=== PATIENT | female | born 1955 | race Caucasian/White ===

== ENCOUNTER → 2017-01-02 | Outpatient (CLI) | payer OTHER ==
[~2017-01-02] MED LIST: ASCO1CAP3 PO; ESTROVEN OTC; ONDA4TAB7 SL
--- NOTE | 2017-01-03 08:29 | MAMMOGRAPHY REPORT ---
BILATERAL DIGITAL SCREENING MAMMOGRAM TOMOSYNTHESIS WITH CAD: 01/02/2017 CLINICAL HISTORY: Routine screening. Patient has no complaints. TECHNIQUE: Breast tomosynthesis in addition to standard 2D mammography was performed. Current study was also evaluated with a Computer Aided Detection (CAD) system. COMPARISON: Comparison is made to exams dated: 12/29/2015 mammogram, 09/20/2014 mammogram, 05/27/2013 m ammogram, 05/11/2013 mammogram, 03/02/2012 mammogram, and 10/16/2010 mammogram - [facility] enter. BREAST COMPOSITION: The tissue of both breasts is heterogeneously dense, which may obscure small mas ses. FINDINGS: No suspicious masses, calcifications, or areas of architectural distortion are noted in ei ther breast. There has been no significant interval change compared to prior exams. IMPRESSION: ACR BI-RADS CATEGORY 1: NEGATIVE There is no mammographic evidence of malignancy. A 1 year screening mammogram is recommended. The pa tient will receive written notification of the results. Approximately 10% of breast cancers are not detected with mammography. A negative mammographic report should not delay biopsy if a clinically suggestive mass is present. Shira Herman M.D. ah/:01/02/2017 14:48:46 Chain Hoist Operator: Mercy Sommers RT(R)(M), [facility] letter sent: Normal 1/2 BI-RADS Code: ACR BI-RADS Category 1: Negative
== END | disposition home or self-care (01) ==
LOC: C.MAMM 09:37
PROVIDERS: ATTEND Family Medicine
DX: Z12.31 Encounter for screening mammogram for malignant neoplasm of breast (principal)

== ENCOUNTER 2020-08-04 07:57 | Observation (INO) ==
--- NOTE | 2020-07-11 15:16 | PAT Medication Instructions ---
Medication Instructions Date of Service July 11, 2020 Home Medications ascorbate calcium (vitamin C) 500 mg tablet 500 mg PO QAM acetaminophen [Acetaminophen Extra Strength] 500 mg PO Q6H PRN ibuprofen 600 mg PO Q6H PRN ASK your surgeon for instructions ibuprofen 600 mg PO Q6H PRN DO NOT take the morning of surgery ascorbate calcium (vitamin C) 500 mg tablet 500 mg PO QAM Take morning of surgery With a small sip of water, OTHERWISE NOTHING TO EAT OR DRINK AFTER MIDNIGHT: acetaminophen [Acetaminophen Extra Strength] 500 mg PO Q6H PRN (okay to take up to 4 hours prior to surgery if needed) Take evening before surgery acetaminophen [Acetaminophen Extra Strength] 500 mg PO Q6H PRN (if needed) Other Notes If you have any questions please call us at [phone] or [phone] or [phone] or [phone]
--- NOTE | 2020-07-12 14:34 | Anesthesiology Consultation ---
Date of Service July 12, 2020 Assessment & Plan (1) Encounter for pre-operative examination: Chart Review Chart Review: Acceptable Risk for Surgery (pending preop Covid testing ) and Patient seen in Pre Admission Testing Per PAT appt on 07/12/20, patient denies any recent travel. No known Covid positive contacts or Covid related symptoms. No known Covid infections in the past 90 days. Educated patient to follow up with surgeon's office regarding Covid testing- pt educated the preop Covid testing cannot be more than 7 days. Educated on importance of self quarantining, social distancing and wearing mask in public both for the patient and household contacts. Teaching & Discussion Pre-Anesthesia Teaching/Discussion Notes: Instructed NPO after midnight before surgery,except medications with 15 cc of water. Medication instructions provided according to the PAT guidelines. History Surgery Operation Date: 08/04/20 10:40 Proposed Procedures p Total Knee Arthroplasty - Henry Reynolds, Height/Weight Height: 5 ft 6 in Weight: 51.9 kg Allergies Allergy/AdvReac Type Severity Reaction Status Date / Time pseudoephedrine Allergy Intermediate ITCHY Verified 07/06/20 12:36 sulfamethoxazole Allergy Intermediate Gastrointestinal Verified 07/06/20 12:36 [From Bactrim] Upset trimethoprim [From Bactrim] Allergy Intermediate Gastrointestinal Verified 07/06/20 12:36 Upset diphenhydramine Allergy Mild ITCHY Verified 07/06/20 12:36 meloxicam [From Mobic] AdvReac Intermediate UNCONTROLLED Verified 07/06/20 12:36 BLADDER/URINARY FREQUENCY Medications Home Medications Medication Instructions Recorded Confirmed Last Taken ascorbate calcium (vitamin C) 500 500 mg PO QAM 05/05/19 07/06/20 01/25/20 mg tablet acetaminophen [Acetaminophen Extra 500 mg PO Q6H PRN 07/06/20 07/06/20 Unknown Strength] ibuprofen 600 mg PO Q6H PRN 07/06/20 07/06/20 Unknown Past Medical History Medical History History of depression Stable Migraine ON RARE OCCASIONS-STABLE Osteoarthritis Exercise / Class Metabolic Activity II 4-5 Yardwork/Stairs/Walk up hill (ONE FLIGHT OF STAIRS = NO CHEST PAIN OR SOB ) Past Family History Family History Mother Borderline diabetes Other No family history of adverse response to anesthesia Denies family history of Ovarian cancer Prostate cancer Myocardial infarction Breast cancer Colorectal cancer Past Surgical History Surgical History History of cataract surgery RT/LEFT History of dilatation and curettage History of hysterectomy History of tooth extraction Past Anesthesia History No Hx of Anesthesia Complications and No Family Hx of Anesthesia Complications History of PONV No Hx of PONV and No Hx of Motion Sickness Social History Smoking Status: Never smoker Hx Alcohol Use: No Hx Substance Use: No substance use type: does not use Review of Systems Hx of mild/occ snoring- no witnessed apnea - no hx of sleep study Patient denies chest pain, shortness of breath, dyspnea on exertion, reflux, cough, wheezing, palpitations. No hx of seizures, stroke, [place]. No hx of blood clots or blood transfusions Physical Exam Vital Signs VITALS BP 126/77 P 80 TEMP 98.1 SP02 97% RESP 16 Constitutional no acute distress ENMT Mouth: no TMJ clicking Thyromental Distance: > or= 3.5 Finger Breadths (3.5) Mallampati Class: II Missing molars Neck neck extension not limited Respiratory normal respiratory effort; no respiratory distress Auscultation: lungs clear to auscultation bilaterally; no wheezes Cardiovascular Rate/Rhythm: regular rate and regular rhythm Heart Sounds: no murmur Vessels: no carotid bruit Musculoskeletal Spine: no pain with cervical ROM Extremities: extremities normal to inspection Psychiatric Orientation: alert Testing Laboratory Results 07/12/20 14:55 07/12/20 14:55 PT 9.5 Seconds (9.0-12.0) 07/12/20 14:55 INR 0.9 (0.9-1.1) 07/12/20 14:55 APTT 28.3 Seconds (21.0-31.0) 07/12/20 14:55 Blood Type B Positive 07/12/20 14:55 Antibody Screen NEGATIVE 07/12/20 14:55 Electrocardiogram Date: 07/12/20 Findings: + NSR @ (69bpm) Rightward axis Chest X-Ray Date: 07/12/20 Findings: + NAD
--- NOTE | 2020-07-12 15:23 | XRay Report ---
XR chest Pre-admission PA/Lat HISTORY: 64 years-old Female pat degenerative joint disease COMPARISON: Chest radiograph 03/21/2012 TECHNIQUE: PA and lateral views of the chest FINDINGS: Cardiomediastinal and hilar silhouettes are within normal limits. There is no pneumothorax, pleural e ffusion, airspace consolidation or overt pulmonary edema. Bones of the chest appear grossly intact. IMPRESSION: No acute process. ACT 112: Negative or not required by law. The above report was generated using voice recognition software. It may contain grammatical, syntax o r spelling errors. Electronically signed by: Hussein Francois M.D. 07/12/2020 3:21 PM
[2020-07-12 15:32] LABS: Basophils # (auto) 0.02 K/uL (0-0.2); Basophils % (auto) 0.4 %; Eosinophils # (auto) 0.12 K/uL (0-0.5); Eosinophils % (auto) 2.6 %; Hematocrit (blood only) 35.1 % (37-47); Hemoglobin 11.4 g/dL (12.0-16.0); Immature Granulocytes # (auto) 0.01 K/uL (0.00-0.02); Immature Granulocytes % (auto) 0.2 %; Lymphocytes # (auto) 1.15 K/uL (1.2-3.4); Lymphocytes % (auto) 24.9 %; Mean Corpuscular Hemoglobin 28.1 pg (25-34); Mean Corpuscular Hgb Conc 32.5 g/dL (32-36); Mean Corpuscular Volume 86.5 fL (80-100); Mean Platelet Volume 9.3 fL (7.4-10.4); Monocytes % (auto) 8.7 %; Neutrophils # (auto) 2.92 K/uL (1.4-6.5); Neutrophils % (auto) 63.2 %; Platelet Count 430 K/uL (130-400); RDW Coefficient of Variation 14.3 % (11.5-14.5); RDW Standard Deviation 45.2 fL (36.4-46.3); Red Blood Count 4.06 M/uL (4.2-5.4); White Blood Count 4.62 K/uL (4.8-10.8)
[2020-07-12 15:48] LABS: INR 0.9 (0.9-1.1); Partial Thromboplastin Ratio 1.1; Partial Thromboplastin Time 28.3 Seconds (21.0-31.0); Prothrombin Time 9.5 Seconds (9.0-12.0)
[2020-07-12 16:12] LABS: BUN Creatinine Ratio 20.6 (10-20); Calcium 9.1 mg/dl (8.5-10.1); Creatinine Clr Calc Pharmacy 95.7 ml/min; Est GFR (African American) 119.3; Est GFR (Non-African American) 102.9; Potassium 4.2 mmol/L (3.5-5.1)
--- NOTE | 2020-07-13 22:13 | Electrocardiogram Report ---
Test Reason : Blood Pressure : / mmHG Vent. Rate : 069 BPM Atrial Rate : 069 BPM P-R Int : 160 ms QRS Dur : 088 ms QT Int : 376 ms P-R-T Axes : 085 094 075 degrees QTc Int : 402 ms Normal sinus rhythm Rightward axis Borderline ECG No previous ECGs available Confirmed by Kedar Longoria ([id number]) on 07/13/2020 10:13:15 PM Referred By: Henry Reynolds Confirmed By:Kedar Longoria
--- NOTE | 2020-08-04 06:24 | History & Physical Report ---
Date of Service August 04, 2020 Assessment & Plan (1) Osteoarthritis of left knee: We will proceed with a left total knee arthroplasty. Postoperatively she will be started on aspirin for DVT prophylaxis and kept overnight in the hospital for postoperative medical management. She plans to use energy physical therapy upon discharge. History of Present Illness Chief Complaint: Osteoarthritis left knee. Primary Care Provider: Nery Acuna MD Danya is a pleasant six 5-year-old female who is been doing with chronic increasing left knee pain. X-rays and clinical examination have been diagnostic for advanced osteoarthritis of the left knee. After failing conservative treatment, she has elected to proceed with a left total knee arthroplasty.. Allergies Allergy/AdvReac Type Severity Reaction Status Date / Time pseudoephedrine Allergy Intermediate ITCHY Verified 07/06/20 12:36 sulfamethoxazole Allergy Intermediate Gastrointestinal Verified 07/06/20 12:36 [From Bactrim] Upset trimethoprim [From Bactrim] Allergy Intermediate Gastrointestinal Verified 07/06/20 12:36 Upset diphenhydramine Allergy Mild ITCHY Verified 07/06/20 12:36 meloxicam [From Mobic] AdvReac Intermediate UNCONTROLLED Verified 07/06/20 12:36 BLADDER/URINARY FREQUENCY Home Medications Medication Instructions Recorded Confirmed Type ascorbate calcium (vitamin C) 500 500 mg PO QAM 05/05/19 07/26/20 History mg tablet acetaminophen [Acetaminophen Extra 500 mg PO Q6H PRN 07/06/20 07/26/20 History Strength] ibuprofen 600 mg PO Q6H PRN 07/06/20 07/26/20 History Past Med/Surg History Medical History History of depression Stable Migraine ON RARE OCCASIONS-STABLE Osteoarthritis Surgical History History of cataract surgery RT/LEFT History of dilatation and curettage History of hysterectomy History of tooth extraction Family History Mother Borderline diabetes Other No family history of adverse response to anesthesia Denies family history of Ovarian cancer Prostate cancer Myocardial infarction Breast cancer Colorectal cancer Social History Smoking Status: Never smoker Second Hand Exposure: No; Hx Alcohol Use: No Hx Substance Use: No Preferred Language: Luxembourgish Communication Ability: Effective Agronomy Manager Required: No Beliefs That Will Affect Care: None Current Living Situation: Alone current occupational status: retired Feels Safe at Home: Yes Safety Concerns: Feels Safe At This Time caffeine: Yes Dental Care, Regularly: No Physical Activity Frequency: 3-4 Times per Week Seatbelt Use: always Sunscreen Use: Yes Assistive Devices: Glasses Review of Systems All systems reviewed & are unremarkable except as noted in HPI & below. Physical Exam On physical examination of the left knee, she has a trace effusion. She has good motion of 0 to 120 degrees. She has no instability. She has pain over the distal medial and lateral femoral condyles.. Constitutional WD/WN, vitals as above Eyes PERRL, conjunctivae normal, anicteric sclerae ENMT external ear and nose normal, oropharynx normal Neck trachea midline, no thyromegaly Respiratory normal respiratory effort Cardiovascular RRR, no murmur, no edema Gastrointestinal (Abdomen) normal bowel sounds, soft, nontender, no hepatosplenomegaly Psychiatric A+Ox3, euthymic affect Results & Data Results & Data Laboratory Results . Diagnostic Findings X-rays of the left knee do show advanced osteoarthritis with joint space narrowing, osteophyte formation, and [id number] articulation.. PG Care Time/CCT Total # of Minutes Spent Total Time Spent with Patient: Total time spent is greater than 50% in coordination of care (as documented) at patient's floor/unit and/or counseling patient: Coding Level of Care Code None Diagnoses Osteoarthritis of left knee M17.12
[~2020-08-04 07:57] MED LIST changes: +ACETAMINOPHEN 500 MG TAB PO SCH; -ASCO1CAP3 PO; +BUPIVACAINE 0.5 % 5 MG/1 ML PF 10ML VIAL ONE; -ESTROVEN OTC; +FAMOTIDINE 20 MG TAB PO SCH; +GABAPENTIN 300 MG CAP PO SCH; +LR 500ML BOLUS, THEN 15ML/HR IV SCH; +LR 60ML/HR IV SCH; -ONDA4TAB7 SL; +ROPIVACAINE 0.5% HCL/PF 150 MG, BUPIVACAINE 0.75% MPF 20 ML, EPINEPHrine 30MG/30ML (OR ... INSTIL SCH; +TRANEXAMIC ACID 1,000 MG **IV Intra-op IV SCH; +TRANEXAMIC ACID 1,000 MG **IV Pre-op IV SCH; +ceFAZolin 1000MG 1,000 MG/7.5 ML SYR IV SCH; +dexAMETHasone 4 MG TAB PO SCH
[2020-08-04] MEDS ORDERED: fentaNYL citrate 100 MCG/2 ML VIAL IV PRN (08:54)
[2020-08-04] MEDS ORDERED: ePHEDrine sulfate 50 MG/ML AMP IV PRN (08:54)
[2020-08-04] MEDS ORDERED: ATROPINE SULFATE 0.1 MG/ML 10ML SYR IV PRN (08:54)
[2020-08-04] MEDS ORDERED: ONDANSETRON INJ 2 MG/ML 2 ML VIAL IV PRN ×2 (08:54→13:23)
[2020-08-04] MEDS ORDERED: fentaNYL citrate 100 MCG/2 ML VIAL ONE (09:19)
[2020-08-04] MEDS ORDERED: MIDAZOLAM HCL 1 MG/ML 2ML VIAL ONE (09:19)
[2020-08-04] MEDS ORDERED: PROPOFOL IV EMULSION 10 MG/ML 20 ML VIAL IV ONE ×3 (09:19→10:44)
[2020-08-04] MEDS ORDERED: ORTHO JOINT ANESTHETIC ONE (09:37)
--- NOTE | 2020-08-04 11:25 | Operative Report ---
PG Post Operative Report Pre & Post Diagnosis Operation Date: 08/04/20 10:40 Pre-Op Diagnosis: Degenerative joint disease, left knee Post-Op Diagnosis: Degenerative joint disease, left knee I identified the patient and participated in the time-out.: Yes Procedure Operation Date: 08/04/20 10:40 Actual Procedures p Left Total Knee Arthroplasty(Left) - Henry Reynolds DO Surgeon Henry Reynolds DO Design Consultant Henry Melgar PAC Estimated Blood Loss 5 Findings Consistent with Post-Op Diagnosis Specimens Left femoral and tibial bone Complications none Disposition Disposition: Recovery Room Indications Danya is a pleasant six 5-year-old female has been doing chronic increasing left knee pain. X-rays and clinical examination have been diagnostic for advanced osteoarthritis of the left knee. After failing conservative treatment, she elected proceed with a left total knee arthroplasty. Description of Procedure Implants used: I used a Neo Persona total knee arthroplasty system with a size 7 narrow femur, D tibia, 32 patella, and a size 10 medial congruent polyethylene bearing. All components were cemented in place with Simplex HV cement. Danya arrived [facility] for the above procedure. She was seen in the preoperative holding area and the operative extremity was identified and signed. She was given a preoperative antibiotic, TXA, a spinal anesthetic and an adductor nerve block. She was taken back to the operating room and laid on the table in supine position. She was given basic sedation. The operative knee was then prepped and draped in sterile fashion. A timeout was done, and the patient and the operative extremity was properly identified. A midline incision was made directly over the patella. Dissection was taken down to the extensor mechanism. A subvastus arthrotomy was used. The medial retinaculum was released and the fat pad was mostly excised. The knee was flexed and the ACL, PCL, and meniscus were removed. A drill was sent down the center of the femoral canal followed by an intramedullary jax. Off that jax a distal femoral cutting block was placed. 9 mm was resected off the distal femur at 5 of valgus. A posterior referencing AP sizing guide was then placed on the distal femur. The femur measured to be a size 7 narrow. 2 drill holes were placed in 3 of external rotation. A 4-in-1 cutting block was then impacted into place. Anterior, posterior, and chamfer cuts were then made. The proximal tibia was then exposed. An external tibial alignment guide was placed. A tibial cut guide was then anchored in place and the proximal tibia was then resected. The posterior aspect of the knee was then opened up and any additional meniscus fragments and osteophytes were removed. The tibia measured to be a size D. The tibial plate was then placed in the appropriate rotation and the tibia was drilled and punched. Trial components were then placed. I used a size 10 medial congruent polyethylene insert. The knee was brought through a full range of motion and felt to be stable. The peg holes for the femoral component were then drilled. The patella was then everted and 9 mm was resected off the posterior aspect of the patella. The patella measured to be a size 32. 3 peg holes were then drilled. A trial patella was placed. The knee was once again brought through a full range of motion and felt to be stable. Trial components were then removed. The surrounding soft tissues were injected with 100 cc of an orthopedic pain control cocktail. All components were then cemented into place with Simplex HV cement. The final polyethylene insert was then snapped into place. Once cement was dry the tourniquet was deflated. Hemostasis was obtained. A dilute betadyne lavage was then done for 3 minutes. The joint was then irrigated with normal saline solution. The subvastus arthrotomy was then closed with #1 Vicryl suture. The skin was closed with 2-0 Vicryl, 3-0V lock suture, and santosh. A Silverlon and a soft compressive dressing were placed. She was then transferred to a hospital bed and taken to the postanesthesia care unit in stable condition. She tolerated the procedure well. Henry Melgar PA-C, was present for the entire procedure. He was critical for patient positioning, prepping, draping, retraction exposure, wound closure and application of sterile dressing. I attest to the content of the Intraoperative Record and any orders documented therein. Any exceptions are noted below.
[2020-08-04] MEDS ORDERED: ePHEDrine sulfate 50 MG/ML SYR ONE (11:34)
--- NOTE | 2020-08-04 12:10 | XRay Report ---
XR knee LT 1 or 2V routine HISTORY: 65 years-old Female Surgical Post Op left knee total joint arthroplasty COMPARISON: Knee radiographs 05/03/2020 TECHNIQUE: 2 views of the left knee FINDINGS: Left knee total joint arthroplasty and patella resurfacing. Anterior midline skin santosh are noted a long with expected postsurgical soft tissue swelling and deep tissue air. No acute fracture or unexpe cted opaque foreign body. IMPRESSION: Left knee total joint arthroplasty with expected postoperative changes. ACT 112: Negative or not required by law. The above report was generated using voice recognition software. It may contain grammatical, syntax o r spelling errors. Electronically signed by: Eyad Francois M.D. 08/04/2020 12:09 PM
--- NOTE | 2020-08-04 13:17 | Anesthesiology Progress Note ---
Date of Service August 04, 2020 Anesthesia Post Procedure Vital Signs Vital Signs: Temp Pulse Pulse Resp BP BP Pulse Ox 08/04/20 12:50 69 18 122/67 96 08/04/20 12:35 70 14 123/66 96 08/04/20 12:20 72 15 121/67 96 08/04/20 12:10 97.2 F L 79 16 128/66 97 08/04/20 12:00 80 23 127/68 99 08/04/20 11:50 96.8 F L 75 17 109/65 100 08/04/20 08:39 97.9 F 73 18 119/80 100 Pain Intensity Head: Pain Intensity: 2 Transfer of Care Handoff Completed per policy Notes Mental Status: alert / awake / arousable and participated in evaluation Patient Amnestic to Procedure: Yes Nausea / Vomiting: adequately controlled Pain: adequately controlled Airway Patency, RR, SpO2: stable & adequate BP & HR: stable & adequate and see Notes below Hydration State: stable & adequate Neuraxial Anesthesia: was administered and sensory block is resolving Anesthetic Complications: no major complications apparent and Pt Satisfied with anesthetic care Notes: In PACU, the patient was noted to have inverted P waves on the monitor. The patient denied CP, SOB, or any other complaints. The patient had normal vital signs throughout her PACU stay. A 12 lead EKG was ordered, and it verified inverted P waves. I spoke with Dr. Veloz, and we were in agreement that the patient did not need further workup and was stable to be discharged to her floor bed.
[2020-08-04] MEDS ORDERED: NALOXONE HCL 0.4 MG/1 ML VIAL/CARP IV PRN (13:23)
[2020-08-04] MEDS ORDERED: HYDROmorphone INJ 0.5 MG/0.5 ML SYR IV PRN (13:23)
[2020-08-04] MEDS ORDERED: bisacodyL 10 MG SUPP PR PRN (13:23)
[2020-08-04] MEDS ORDERED: METOCLOPRAMIDE HCL INJ 5 MG/ML 2 ML VIAL IV PRN (13:23)
[2020-08-04] MEDS ORDERED: oxyCODONE HCL IR 5 MG TAB (IMMEDIATE RELEASE) PO PRN (13:23)
[2020-08-04] MEDS ORDERED: MAGNESIUM HYDROXIDE SUSP 30 ML UDC PO PRN (13:23)
[2020-08-04] MEDS: SODIUM CHLORIDE 0.9% 1000ML 1,000 ML IV SCH (13:39)
[2020-08-04] MEDS: ACETAMINOPHEN 500 MG TAB PO SCH ×2 (14:55→20:55)
[2020-08-04] MEDS: KETOROLAC TROMETHAMINE 15 MG/ML VIAL IV SCH ×2 (14:56→20:55)
--- NOTE | 2020-08-04 15:39 | Electrocardiogram Report ---
Test Reason : Blood Pressure : / mmHG Vent. Rate : 071 BPM Atrial Rate : 071 BPM P-R Int : 162 ms QRS Dur : 090 ms QT Int : 390 ms P-R-T Axes : -89 099 054 degrees QTc Int : 423 ms Unusual P axis, possible ectopic atrial rhythm Rightward axis Abnormal ECG When compared with ECG of 12-JUL-2020 14:52, Ectopic atrial rhythm has replaced Sinus rhythm Otherwise no significant change Confirmed by Stef Llanos ([id number]) on 08/04/2020 3:39:09 PM Referred By: Henry Reynolds Confirmed By:Stef Llanos
[2020-08-04] MEDS: ceFAZolin 2000MG 2,000 MG/15 ML SYR IV SCH (17:42)
[2020-08-04] MEDS: ASPIRIN 81 MG ECTAB PO SCH (20:54)
[2020-08-04] MEDS: DOCUSATE SODIUM 100 MG CAP PO SCH (20:54)
[2020-08-04] MEDS ORDERED: SENNA 8.6 MG TAB PO SCH (21:00)
[2020-08-05] MEDS: SODIUM CHLORIDE 0.9% 1000ML 1,000 ML IV SCH (00:21)
[2020-08-05] MEDS: KETOROLAC TROMETHAMINE 15 MG/ML VIAL IV SCH ×2 (02:59→07:49)
[2020-08-05] MEDS: ceFAZolin 2000MG 2,000 MG/15 ML SYR IV SCH (02:59)
[2020-08-05] MEDS: ACETAMINOPHEN 500 MG TAB PO SCH (05:55)
[2020-08-05] MEDS ORDERED: dexAMETHasone 4 MG TAB PO SCH (08:00)
[2020-08-05] MEDS: ASPIRIN 81 MG ECTAB PO SCH (08:06)
[2020-08-05] MEDS: DOCUSATE SODIUM 100 MG CAP PO SCH (08:07)
--- NOTE | 2020-08-05 08:50 | Discharge Summary ---
Date of Service August 05, 2020 Admission HPI (Per Admitting) Danya is a pleasant six 5-year-old female who is been doing with chronic increasing left knee pain. X-rays and clinical examination have been diagnostic for advanced osteoarthritis of the left knee. After failing conservative treatment, she has elected to proceed with a left total knee arthroplasty.. Admission Exam (Per Admitting) On physical examination of the left knee, she has a trace effusion. She has good motion of 0 to 120 degrees. She has no instability. She has pain over the distal medial and lateral femoral condyles.. Principal Diagnosis Same as "Discharge Diagnosis" noted below under Discharge Instructions. Discharge Exam On physical examination of the left knee, the dressing is clean and dry. Her leg is out full extension. She has active dorsiflexion plantarflexion of her left ankle.. Discharge Data Procedures Performed Operation Date: 08/04/20 10:40 Actual Procedures p Left Total Knee Arthroplasty(Left) - Henry Reynolds DO Ordered Studies 08/04/20 05:00 US - OR guided needle placemen Routine Hospital Course (1) Status post left knee replacement: On August 04, 2020 Danya arrived at [facility] and underwent a left knee replacement without complication. She had a spinal anesthetic. Postoperatively she was started on aspirin for DVT prophylaxis and transferred to the general orthopedic floors. Her hospital course was uneventful. On postop day #1 her H&H was stable and her pain was well controlled. She was able to participate well with physical therapy doing ambulation and range of motion exercises. She was then discharged home. She will follow-up with orthopedics in 2 weeks. PG Care Time/CCT Total # of Minutes Spent Total Time Spent with Patient: Total time spent is greater than 50% in coordination of care (as documented) at patient's floor/unit and/or counseling patient: Discharge Plan Discharge Items Patient Disposition: Home - Home Health Services Reason For Visit: DJD Knee Left Discharge Diagnosis: Left total knee Activity: As commented below Non-emergency contact: Surgeon Call non-emergency contact if: your wound has increased redness and your wound has increased drainage Follow-up/Referrals: Nery Acuna MD [Primary Care Provider] - Diet: Regular Addtl Attending Provider Instructions: Activity and Therapy Recommendations: * If you are using [facility] then therapy will be provided at your home until they feel you have accomplished all of your goals. * If you are using [facility] then Physical Therapy will be provided until they feel you are ready to start Outpatient Physical Therapy. * If you are not using home therapy then Outpatient Physical Therapy should start about 3-5 days from your day of surgery. Therapy will last about 6-10 weeks * It is important not to put a pillow under your knee when you are relaxing or sleeping. It is just as important to make sure you are getting your knee pe rfectly straight as it is to regain your knee bend. * You were shown a series of exercises in the hospital. Do these exercises three times each day including the exercises you were shown in physical therapy. * Get up and walk several times each day. For the first four weeks, try not to stand or walk for more than one hour at a time. If you do stand or walk for more than one hour, you will not hurt anything, but your leg will likely swell. * As you feel comfortable, you may change from the walker or crutches to a cane and then to independent walking. Medications: * Narcotic You will likely be sent home from the hospital with a prescription for the narcotic pain medication that worked best throughout your stay. * Aspirin Most patients will be required to take Aspirin 81mg twice a day for 6 weeks after surgery. This is obtained [id number] and a prescription is not necessary. * Other medications may be prescribed for specific circumstances. If you have any questions, please call the office at . * Resume previous home medications unless otherwise instructed TEDs/Elastic Stockings: The white elastic stockings help limit swelling and prevent blood clots from forming in your legs.~ The more you wear them, the more they work. Wear them for six weeks. Dressing Care: You may remove the dressing after physical therapy on the first day. Do daily dry dressing changes. If the incision is not draining then you may leave the santosh open to air. If there is a little bit of drainage or if the santosh are getting stuck on your clothing then cover the incision with a dry dressing. The santosh will be removed at your 2 week follow-up appointment. Showering: You may shower 5 days after the day of surgery. You may shower with the santosh exposed. Let soapy water run over the santosh and pat them dry. Do not scrub or soak the incision. Things To Watch For: * Drainage from the incision site that occurs more than one week after your surgery. * Increased redness at the incision site. * Fever above 102 degrees Fahrenheit. * Unusual chest pain or shortness of breath. * Call [facility] at with any of the above problems Follow-Up Visit: Follow-up with Dr. Reynolds's PA (Henry Melgar) 2-3 weeks after your day of surgery. He will remove your santosh and answer any questions. If you have any additional questions or concerns, Dr Reynolds is usually in the office at the same time and will be available An appointment was probably scheduled when you signed-up for surgery in the office. If you have any questions call Office Instructions: More detailed instructions as well as Frequently Asked Questions were provided in a folder by our office when you signed-up for surgery. Please review these instructions when you get home. If you have any further questions or concerns, please feel free to call the office at [phone] Pending Studies at Discharge: No Stand-Alone Forms: My [facility] Medications and DC Order Prescriptions: New oxycodone 5 mg Tablet 5 mg PO Q4H PRN (Reason: pain) Qty: 40 RF: 0 aspirin 81 mg Tablet,Delayed Release (Dr/Ec) 81 mg PO BID 42 Days Qty: 84 RF: 0 Continued ascorbate calcium (vitamin C) 500 mg tablet 500 mg PO QAM RF: 0 acetaminophen [Acetaminophen Extra Strength] 500 mg Tablet 500 mg PO Q6H PRN (Reason: Pain) RF: 0 ibuprofen 600 mg Tablet 600 mg PO Q6H PRN (Reason: Pain) RF: 0 Discharge Orders: Discharge Order (Routine); Ordered 08/05/20 Ordered By: Henry Reynolds Admission Data Admit Date/Time: 08/04/20 11:49 Attending Provider: Henry Reynolds Admit Provider: Henry Reynolds Primary Care Provider: Nery Acuna
--- NOTE | 2020-08-05 08:50 | Orthopedic Progress Note ---
Date of Service August 05, 2020 Assessment & Plan (1) Status post left knee replacement: Overall she is doing very well. She is not any much pain in the left knee. She will be seen by physical therapy today for ambulation and range of motion exercises. She is on aspirin for DVT prophylaxis. She can be discharged home later today. She will follow-up with orthopedics in 2 weeks. Finn Hagan was seen and examined at bedside this morning. Overall she is doing very well. She not having much pain in the left knee. She has been up and ambulating to the bathroom. She has no complaints.. Review of Systems All systems reviewed & are unremarkable except as noted in HPI & below. Physical Exam On physical examination of the left knee, the dressing is clean and dry. Her leg is out full extension. She has active dorsiflexion plantarflexion of her left ankle.. Results & Data Results & Data Laboratory Results . Diagnostic Findings Postoperative x-rays of the left knee show the prosthesis to be in anatomic alignment without any evidence of fracture, dislocation, or loosening. PG Care Time/CCT Total # of Minutes Spent Total Time Spent with Patient: Total time spent is greater than 50% in coordination of care (as documented) at patient's floor/unit and/or counseling patient: Coding Level of Care Code 73822 Post Operative Follow-Up Diagnoses Status post left knee replacement Z96.652
[2020-08-05] MEDS ORDERED: MULTIVITAMIN TAB PO SCH (09:00)
== END 2020-08-05 12:13 | disposition home health service (06) ==
LOC: ASU 07:57 → 3N 07:57

== ENCOUNTER 2021-11-05 08:18 | Observation (INO) ==
--- NOTE | 2021-10-23 15:00 | PAT Medication Instructions ---
Medication Instructions Date of Service October 23, 2021 Home Medications leflunomide 10 mg tablet 10 mg PO QAM ASK your prescriber and surgeon leflunomide 10 mg tablet 10 mg PO QAM Other Notes NOTHING TO EAT OR DRINK AFTER MIDNIGHT. If you have any questions please call us at [phone] or [phone] or [phone] or [phone]
--- NOTE | 2021-10-30 08:53 | Anesthesiology Consultation ---
Date of Service October 30, 2021 Assessment & Plan (1) Encounter for pre-operative examination: - COVID screening: Per assessment on 10/30: No known COVID-19 positive contacts or current COVID-19 related symptoms. Travel screen negative. Surgeon arranging preop COVID testing. Awaiting results. - S/P Left Total knee arthroplasty (08/04/20): SAB at L3/4 (x1 attempt) + PNB at [facility]. Per anesthesia post-op progress note "In PACU, the patient was noted to have inverted P waves on the monitor. The patient denied CP, SOB, or any other complaints. The patient had normal vital signs throughout her PACU stay. A 12 lead EKG was ordered, and it verified inverted P waves. I spoke with Dr. Veloz, and we were in agreement that the patient did not need further workup and was stable to be discharged to her floor bed." Unremarkable preop EKG performed 10/30/21 at [facility]- pt denies cardiopulmonary complaints. Case reviewed with Dr. Hayes- he feels okay to proceed with surgery without further cardiac evaluation and/or testing prior to surgery from his perspective. Chart Review Chart Review: Acceptable Risk for Surgery (pending evaluation AM DOS) and Patient seen in Pre Admission Testing Teaching & Discussion Pre-Anesthesia Teaching/Discussion Notes: Instructed NPO after midnight before surgery,except medications with 15 cc of water. Medication instructions provided according to the [facility] guidelines. History Surgery Operation Date: 11/05/21 13:50 Proposed Procedures p Right Total Knee Arthroplasty - Henry Reynolds, Height/Weight Height: 5 ft 6 in Weight: 49.8 kg Allergies Allergy/AdvReac Type Severity Reaction Status Date / Time pseudoephedrine Allergy Intermediate Itchy Verified 10/29/21 11:20 diphenhydramine Allergy Mild Itchy Verified 10/29/21 11:20 meloxicam [From Mobic] AdvReac Intermediate Uncontrolled Verified 10/29/21 11:20 bladder/urinary frequency sulfamethoxazole AdvReac Intermediate Gastrointestinal Verified 10/29/21 11:20 [From Bactrim] Upset trimethoprim [From Bactrim] AdvReac Intermediate Gastrointestinal Verified 10/29/21 11:20 Upset hydroxychloroquine sulfate Allergy Mild Rash Uncoded 10/22/21 09:58 Medications Home Medications Medication Instructions Recorded Confirmed Last Taken leflunomide 10 mg tablet 10 mg PO QAM 10/22/21 10/22/21 Unknown Past Medical History Medical History Migraine Occasional Osteoarthritis Seronegative polyarthritis Reason for leflunomide Exercise / Class Metabolic Activity III < 4 Walking/Shop/Light housework Past Family History Family History Mother Borderline diabetes Other No family history of adverse response to anesthesia Denies family history of Ovarian cancer Prostate cancer Myocardial infarction Breast cancer Colorectal cancer Past Surgical History Surgical History History of cataract surgery R/L History of dilatation and curettage History of hysterectomy History of tooth extraction Status post left knee replacement Left Total knee arthroplasty (08/04/20): SAB at L3/4 (x1 attempt) + PNB at [facility]. Per anesthesia post-op progress note "In PACU, the patient was noted to have inverted P waves on the monitor. The patient denied CP, SOB, or any other complaints. The patient had normal vital signs throughout her PACU stay. A 12 lead EKG was ordered, and it verified inverted P waves. I spoke with Dr. Veloz, and we were in agreement that the patient did not need further workup and was stable to be discharged to her floor bed." Past Anesthesia History No Family Hx of Anesthesia Complications and Other Left Total knee arthroplasty (08/04/20): SAB at L3/4 (x1 attempt) + PNB at [facility]. Per anesthesia post-op progress note "In PACU, the patient was noted to have inverted P waves on the monitor. The patient denied CP, SOB, or any other complaints. The patient had normal vital signs throughout her PACU stay. A 12 lead EKG was ordered, and it verified inverted P waves. I spoke with Dr. Veloz, and we were in agreement that the patient did not need further workup and was stable to be discharged to her floor bed." History of PONV No Hx of PONV and No Hx of Motion Sickness Social History Smoking Status: Never smoker Do You Dip or Chew Tobacco: No Hx Alcohol Use: No Hx Substance Use: No substance use type: does not use Review of Systems Patient denies chest pain, shortness of breath, fever, chills, cough, wheezing, palpitations. Physical Exam Vital Signs VITALS BP 124/73 P 73 TEMP 98.0 SP02 99%RA RESP 16 PHYSICAL Full cervical extension range of motion. Full TMJ range of motion. TMD 3 finger breaths Mallampati Score 2 Dentition: several missing sides/molars Lungs: clear throughout to auscultation Cardiac: regular rate and rhythm, no murmurs noted Spine: normal Carotid arteries: negative bruit Extremities: no edema Lab Results Anesthesia Preop Results Results Anesthesia Widget: WBC 4.17 K/ul (4.8-10.8) L 10/30/21 Hgb 11.7 g/dl (12.0-16.0) L 10/30/21 Hct 35.4 % (34.1-44.9) 10/30/21 Plt 245 K/uL (130-400) 10/30/21 Na 138 mmol/L (136-145) 10/30/21 K 4.3 mmol/L (3.5-5.1) 10/30/21 Cl 104 mmol/L (98-107) 10/30/21 CO2 28 mmol/L (21-32) 10/30/21 BUN 12 mg/dl (6-23) 10/30/21 Creat 0.62 mg/dl (0.6-1.2) 10/30/21 Glucose Level 87 mg/dl (70-99(Fasting)) 10/30/21 PT 10.1 Seconds (9.0-12.0) 10/30/21 PTT 28.5 Seconds (21.0-31.0) 10/30/21 INR 0.9 (0.9-1.1) 10/30/21 Blood Type B Positive 10/30/21 Antibody Screen NEGATIVE 10/30/21 Testing Electrocardiogram Date: 10/30/21 Normal sinus rhythm at 72 bpm. Rightward axis. Chest X-Ray Date: 10/30/21 FINDINGS: No pneumothorax. No pleural effusions. The heart is normal in size. The lungs are clear. The lungs are hyperexpanded with mild apical predominant emphysematous changes. No evidence for pulmonary edema. Mild degenerative changes within the mid thoracic spine. IMPRESSION: No significant change compared to the prior study. No acute process.
[~2021-11-05 08:18] MED LIST changes: +Ketorolac (*for OR use only*) 30 MG, dexAMETHasone 4 MG, KETAMINE HCL (**OR use only) 1... INFIL SCH; +ROPIVACAINE 0.5% 5 MG/ML 30 ML VIAL ONE; -ROPIVACAINE 0.5% HCL/PF 150 MG, BUPIVACAINE 0.75% MPF 20 ML, EPINEPHrine 30MG/30ML (OR ... INSTIL SCH
[2021-11-05] MEDS ORDERED: MIDAZOLAM HCL 1 MG/ML 2ML VIAL ONE (09:04)
[2021-11-05] MEDS ORDERED: fentaNYL citrate 100 MCG/2 ML VIAL ONE (09:04)
[2021-11-05] MEDS ORDERED: HYDROmorphone INJ 2 MG/ML SYR/VIAL IV PRN (09:48)
[2021-11-05] MEDS ORDERED: fentaNYL citrate 100 MCG/2 ML VIAL IV PRN (09:48)
[2021-11-05] MEDS ORDERED: ATROPINE SULFATE 0.1 MG/ML 10ML SYR IV PRN (09:48)
[2021-11-05] MEDS ORDERED: ePHEDrine sulfate 50 MG/ML AMP IV PRN (09:48)
[2021-11-05] MEDS ORDERED: ONDANSETRON INJ 2 MG/ML 2 ML VIAL IV PRN ×2 (09:48→14:06)
--- NOTE | 2021-11-05 09:59 | History & Physical Bridge Note ---
Date of Service November 05, 2021 History & Physical Bridge Note I have examined the patient, reviewed the History & Physical and in the interval since the performance of the History & Physical I have noted the following changes of clinical significance: no changes noted
[2021-11-05] MEDS ORDERED: ORTHO JOINT ANESTHETIC ONE (10:22)
[2021-11-05] MEDS ORDERED: PROPOFOL IV EMULSION 10 MG/ML 20 ML VIAL IV ONE (10:48)
--- NOTE | 2021-11-05 11:45 | Operative Report ---
PG Post Operative Report Pre & Post Diagnosis Operation Date: 11/05/21 10:45 Pre-Op Diagnosis: Right Knee Degenerative Joint Disease Post-Op Diagnosis: Right Knee Degenerative Joint Disease I identified the patient and participated in the time-out.: Yes Procedure Operation Date: 11/05/21 10:45 Actual Procedures p Right Total Knee Arthroplasty, Cemented(Right) - Henry Reynolds DO Surgeon Henry Reynolds DO Young Adult Librarian Henry Melgar PA-C Estimated Blood Loss 20 Findings Consistent with Post-Op Diagnosis Specimens Right femoral and tibial bone Description of Procedure Implants used: I used a Neo Persona total knee arthroplasty system with a size 7 narrow femur, D tibia, 31 oval patella, and a size 10 medial congruent polyethylene bearing. All components were cemented in place with Biomet cement. Danya arrived [facility] for the above procedure. She was seen in the preoperative holding area and the operative extremity was identified and signed. She was given a preoperative antibiotic, TXA, a spinal anesthetic and an adductor nerve block. She was taken back to the operating room and laid on the table in supine position. She was given basic sedation. The operative knee was then prepped and draped in sterile fashion. A timeout was done, and the patient and the operative extremity was properly identified. A midline incision was made directly over the patella. Dissection was taken down to the extensor mechanism. A subvastus arthrotomy was used. The medial retinaculum was released and the fat pad was mostly excised. The knee was flexed and the ACL, PCL, and meniscus were removed. A drill was sent down the center of the femoral canal followed by an intramedullary jax. Off that jax a distal femoral cutting block was placed. 9 mm was resected off the distal femur at 5 of valgus. A posterior referencing AP sizing guide was then placed on the distal femur. The femur measured to be a size 7. 2 drill holes were placed in 3 of external rotation. A 4-in-1 cutting block was then impacted into place. Anterior, posterior, and chamfer cuts were then made. The proximal tibia was then exposed. An external tibial alignment guide was placed. A tibial cut guide was then anchored in place and the proximal tibia was then resected. The posterior aspect of the knee was then opened up and any additional meniscus fragments and osteophytes were removed. The tibia measured to be a size D. The tibial plate was then placed in the appropriate rotation and the tibia was drilled and punched. Trial components were then placed. I used a size 10 medial congruent polyethylene insert. The knee was brought through a full range of motion and felt to be stable. The peg holes for the femoral component were then drilled. The patella was then everted and 9 mm was resected off the posterior aspect of the patella. The patella measured to be a size 31 oval. 3 peg holes were then drilled. A trial patella was placed. The knee was once again brought through a full range of motion and felt to be stable. Trial components were then removed. The surrounding soft tissues were injected with 100 cc of an orthopedic pain control cocktail. All components were then cemented into place with Biomet cement. The final polyethylene insert was then snapped into place. Once cement was dry the tourniquet was deflated. Hemostasis was obtained. A dilute betadyne lavage was then done for 3 minutes. The joint was then irrigated with normal saline solution. The subvastus arthrotomy was then closed with #1 Vicryl suture. The skin was closed with 2-0 Vicryl, 3-0V lock suture, and santosh. A soft compressive dressing was placed. She was then transferred to a hospital bed and taken to the postanesthesia care unit in stable condition. She tolerated the procedure well. Henry Melgar PA-C, was present for the entire procedure. He was critical for patient positioning, prepping, draping, retraction exposure, wound closure and application of sterile dressing. I attest to the content of the Intraoperative Record and any orders documented therein. Any exceptions are noted below.
--- NOTE | 2021-11-05 12:38 | XRay Report ---
XR knee RT 1 or 2V routine CLINICAL HISTORY: Surgical Post Op TECHNIQUE: 2 views of the right knee were obtained. Comparison: Comparison is made to the radiograph dated 11/02/2019 FINDINGS: Patient is status post total knee arthroplasty with expected postsurgical changes including soft tiss ue swelling and subcutaneous emphysema. No periarticular lucency or hardware fracture is seen. IMPRESSION: Expected postoperative appearance status post placement of total knee arthroplasty. ACT 112: Negative or not required by law. Electronically signed by: Ramu Salazar M.D. 11/05/2021 12:37 PM
--- NOTE | 2021-11-05 12:45 | Anesthesiology Progress Note ---
Date of Service November 05, 2021 Anesthesia Post Procedure Vital Signs Vital Signs: Temp Pulse Pulse Resp BP Pulse Ox O2 Del Method 11/05/21 12:40 79 16 112/62 96 Room Air 11/05/21 12:30 88 21 120/71 96 Room Air 11/05/21 12:20 86 21 116/53 L 98 Room Air 11/05/21 12:10 89 15 111/68 99 Oxymask 11/05/21 12:03 36.6 C 92 H 16 101/36 L 98 Oxymask 11/05/21 08:54 36.5 C 78 18 142/76 H 99 Room Air O2 Flow Rate 11/05/21 12:40 11/05/21 12:30 11/05/21 12:20 11/05/21 12:10 4 11/05/21 12:03 4 11/05/21 08:54 Pain Intensity Right Knee: Pain Intensity: 2 Transfer of Care Handoff Completed per policy Notes Mental Status: alert / awake / arousable and participated in evaluation Patient Amnestic to Procedure: Yes Nausea / Vomiting: adequately controlled Pain: adequately controlled Airway Patency, RR, SpO2: stable & adequate BP & HR: stable & adequate Hydration State: stable & adequate Anesthetic Complications: no major complications apparent and Pt Satisfied with anesthetic care
[2021-11-05] MEDS ORDERED: SODIUM CHLORIDE 0.9% 1000ML 1,000 ML IV SCH (14:06)
[2021-11-05] MEDS ORDERED: bisacodyL 10 MG SUPP PR PRN (14:06)
[2021-11-05] MEDS ORDERED: MAGNESIUM HYDROXIDE SUSP 30 ML UDC PO PRN (14:06)
[2021-11-05] MEDS ORDERED: METOCLOPRAMIDE HCL INJ 5 MG/ML 2 ML VIAL IV PRN (14:06)
[2021-11-05] MEDS ORDERED: HYDROmorphone INJ 0.5 MG/0.5 ML SYR IV PRN (14:06)
[2021-11-05] MEDS ORDERED: NALOXONE HCL 0.4 MG/1 ML VIAL/CARP IV PRN (14:06)
[2021-11-05] MEDS: KETOROLAC TROMETHAMINE 15 MG/ML VIAL IV SCH ×2 (16:40→21:23)
[2021-11-05] MEDS: ACETAMINOPHEN 500 MG TAB PO SCH (18:59)
[2021-11-05] MEDS: ceFAZolin 2000MG 2,000 MG/15 ML SYR IV SCH (18:59)
[2021-11-05] MEDS ORDERED: SENNA 8.6 MG TAB PO SCH (21:00)
[2021-11-05] MEDS: ASPIRIN 81 MG ECTAB PO SCH (21:21)
[2021-11-05] MEDS: DOCUSATE SODIUM 100 MG CAP PO SCH (21:23)
[2021-11-06] MEDS: ceFAZolin 2000MG 2,000 MG/15 ML SYR IV SCH (02:27)
[2021-11-06] MEDS: KETOROLAC TROMETHAMINE 15 MG/ML VIAL IV SCH ×2 (05:14→11:58)
[2021-11-06] MEDS: ACETAMINOPHEN 500 MG TAB PO SCH ×2 (06:13→13:41)
--- NOTE | 2021-11-06 07:01 | Orthopedic Progress Note ---
Date of Service November 06, 2021 Assessment & Plan (1) Status post right knee replacement: Overall she is doing very well. She is not having much pain in the right knee. She will be seen by physical therapy today for ambulation and range of motion exercises. She is on aspirin for DVT prophylaxis. She can be discharged home later today. She will follow-up with orthopedics in 2 weeks. Finn Hagan was seen and examined at bedside this morning. Overall she is doing very well. She is not having much pain in the right knee. She has been up and ambulating to the bathroom. She has no complaints.. Review of Systems All systems reviewed & are unremarkable except as noted in HPI & below. Physical Exam On physical examination of the right knee, the dressing is clean and dry. Her leg is out full extension. She has active dorsiflexion plantarflexion of the right ankle.. Results & Data Results & Data Laboratory Results . Diagnostic Findings Postoperative x-rays of the right knee show the prosthesis to be in anatomic alignment without any evidence of fracture, dislocation, or loosening. PG Care Time/CCT Total # of Minutes Spent Total Time Spent with Patient: Total time spent is greater than 50% in coordination of care (as documented) at patient's floor/unit and/or counseling patient: Coding Level of Care Code 93367 Post Operative Follow-Up Diagnoses Status post right knee replacement Z96.651
--- NOTE | 2021-11-06 07:02 | Discharge Summary ---
Date of Service November 06, 2021 Principal Diagnosis Same as "Discharge Diagnosis" noted below under Discharge Instructions. Discharge Exam On physical examination of the right knee, the dressing is clean and dry. Her leg is out full extension. She has active dorsiflexion plantarflexion of the right ankle.. Discharge Data Procedures Performed Operation Date: 11/05/21 10:45 Actual Procedures p Right Total Knee Arthroplasty, Cemented(Right) - Henry Reynolds DO Ordered Studies 11/05/21 05:00 US - OR guided needle placemen Routine Hospital Course (1) Status post right knee replacement: On November 05, 2021 Danya arrived at [facility] and underwent a right knee replacement without complication. She had a spinal anesthetic. Postoperatively she was started on aspirin for DVT prophylaxis and transferred to the general orthopedic floors. Her hospital course was uneventful. On postop day #1, her vital signs were stable and her pain was well controlled. She was able to participate well with physical therapy doing ambulation and range of motion exercises. She was then discharged home. She will follow-up with orthopedics in 2 weeks. PG Care Time/CCT Total # of Minutes Spent Total Time Spent with Patient: Total time spent is greater than 50% in coordination of care (as documented) at patient's floor/unit and/or counseling patient: Discharge Plan Discharge Items Patient Disposition: Home - Home Health Services Reason For Visit: Right Knee Degenerative Joint Disease Discharge Diagnosis: Right knee replacement Activity: As commented below Non-emergency contact: Surgeon Call non-emergency contact if: your wound has increased redness and your wound has increased drainage Follow-up/Referrals: Nery Acuna MD [Primary Care Provider] - Diet: Regular Addtl Attending Provider Instructions: Activity and Therapy Recommendations: * If you are using [facility] then therapy will be provided at your home until they feel you have accomplished all of your goals. * If you are using [facility] then Physical Therapy will be provided until they feel you are ready to start Outpatient Physical Therapy. * If you are not using home therapy then Outpatient Physical Therapy should start about 3-5 days from your day of surgery. Therapy will last about 6-10 weeks * It is important not to put a pillow under your knee when you are relaxing or sleeping. It is just as important to make sure you are getting your knee perfectly straight as it is to regain your knee bend. * You were shown a series of exercises in the hospital. Do these exercises three times each day including the exercises you were shown in physical therapy. * Get up and walk several times each day. For the first four weeks, try not to stand or walk for more than one hour at a time. If you do stand or walk for more than one hour, you will not hurt anything, but your leg will likely s well. * As you feel comfortable, you may change from the walker or crutches to a cane and then to independent walking. Medications: * Narcotic You will likely be sent home from the hospital with a prescription for the narcotic pain medication that worked best throughout your stay. * Aspirin Most patients will be required to take Aspirin 81mg twice a day for 6 weeks after surgery. This is obtained [id number] and a prescription is not necessary. * Other medications may be prescribed for specific circumstances. If you have any questions, please call the office at . * Resume previous home medications unless otherwise instructed TEDs/Elastic Stockings: The white elastic stockings help limit swelling and prevent blood clots from forming in your legs.~ The more you wear them, the more they work. Wear them for six weeks. Dressing Care: The dressing can be changed after physical therapy on postop day #1. Daily dry dressing changes for a few days, especially if the incision is still draining some. If the incision is not draining then you may leave the santosh open to air. If there is a little bit of drainage or if the santosh are getting stuck on your clothing then cover the incision with a dry dressing. The santosh will be removed at your 2 week follow-up appointment. Showering: You may shower 5 days from the day of surgery as long as the incision is no longer draining. You may shower with the santosh exposed. Let soapy water run over the santosh and pat them dry. Do not scrub or soak the incision. Things To Watch For: * Drainage from the incision site that occurs more than one week after your surgery. * Increased redness at the incision site. * Fever above 102 degrees Fahrenheit. * Unusual chest pain or shortness of breath. * Call [facility] at with any of the above problems Follow-Up Visit: Follow-up with Dr. Reynolds's PA (Henry Melgar) 2-3 weeks after your day of surgery. He will remove your santosh and answer any questions. If you have any additional questions or concerns, Dr Reynolds is usually in the office at the same time and will be available An appointment was probably scheduled when you signed-up for surgery in the office. If you have any questions call Office Instructions: More detailed instructions as well as Frequently Asked Questions were provided in a folder by our office when you signed-up for surgery. Please review these instructions when you get home. If you have any further questions or concerns, please feel free to call the office at [phone] Pending Studies at Discharge: No Stand-Alone Forms: My [facility] Medications and DC Order Prescriptions: New oxycodone 5 mg Tablet 5 mg PO Q4H PRN (Reason: pain) Qty: 40 0RF aspirin 81 mg Tablet,Delayed Release (Dr/Ec) 81 mg PO BID 42 Days Qty: 84 0RF Continued leflunomide [Arava] 10 mg tablet 10 mg PO QAM Discharge Orders: Discharge Order (Routine); Ordered 11/06/21 Ordered By: Henry Reynolds Admission Data Admit Date/Time: 11/05/21 12:06 Attending Provider: Henry Reynolds Admit Provider: Henry Reynolds Primary Care Provider: Nery Acuna
[2021-11-06] MEDS ORDERED: dexAMETHasone 4 MG TAB PO SCH (08:00)
[2021-11-06] MEDS: oxyCODONE HCL IR 5 MG TAB (IMMEDIATE RELEASE) PO PRN ×2 (08:36→13:39)
[2021-11-06] MEDS: DOCUSATE SODIUM 100 MG CAP PO SCH (08:37)
[2021-11-06] MEDS: ASPIRIN 81 MG ECTAB PO SCH (08:37)
[2021-11-06] MEDS ORDERED: LEFLUNOMIDE 10 MG TAB PO SCH (09:00)
[2021-11-06] MEDS ORDERED: MULTIVITAMIN TAB PO SCH (09:00)
== END 2021-11-06 15:10 | disposition home health service (06) ==
LOC: PACUINP 08:18 → ASU 08:18 → 3N 14:43
DX: Z88.1 Allergy status to other antibiotic agents; M17.11 Unilateral primary osteoarthritis, right knee; Z88.8 Allergy status to other drugs, medicaments and biological substances; Z96.652 Presence of left artificial knee joint; Z88.2 Allergy status to sulfonamides